=== PATIENT | female | born 1980 | race Hispanic/Latino ===

== ENCOUNTER 2022-11-22 09:12 | Outpatient (CLI) | payer OTHER | END 2022-11-22 09:13 | disposition home or self-care (01) | LOC: BICRAD 09:12 | PROVIDERS: ATTEND Family Medicine | DX: M25.50 Pain in unspecified joint (principal); N63.22 Unspecified lump in the left breast, upper inner quadrant; S92.352D Displaced fracture of fifth metatarsal bone, left foot, subsequent encounter for fracture with routine healing ==